=== PATIENT | female | born 2000 | race Caucasian/White ===

== ENCOUNTER 2019-11-22 07:45 | Outpatient (CLI) | payer BC, SELFPAY ==
--- NOTE | ~2019-11-22 | US_ITS ---
EXAMINATION: US abdomen complete EXAM DATE: 11/22/2019 09:09 INDICATION: Splenomegaly. TECHNIQUE: Multiple grayscale and Doppler images of the complete abdomen were obtained (by a technolo gist who performed the scan) and subsequently reviewed. Comparison is made to prior examination from 05/21/2014. FINDINGS: The abdominal aorta is normal in caliber. Visualized portion IVC is patent. The pancreatic head a nd body are normal in appearance. The pancreatic tail is not visualized. The liver has normal echogenicity and contour. There are no focal liver lesions identified. There is no evidence of intrahepatic biliary duct dilation. Portal venous flow was seen in the hepatopedal , normal direction and has normal Doppler waveform. Common bile duct measures 6 mm, which is normal. The gallbladder fossa is unremarkable. Right kidney: There is normal contour and echogenicity. It measures 10.7 x 4.2 x 4.9 centimeters. There are no focal renal lesions identified. There is no hydronephrosis. Left kidney: There is normal contour and echogenicity. It measures 10.3 x 4.0 x 4.9 centimeters. T here are no focal renal lesions identified. There is no hydronephrosis. Spleen measures 15.6 cm in greatest dimension, mildly enlarged. Spleen was not measured on prior stud y. IMPRESSION: 1. Mild splenomegaly. Reviewed, dictated and finalized at location B. S CYLINDER FLANGER IMPRESSION: 1. Mild splenomegaly.
== END 2019-11-22 07:46 | disposition home or self-care (01) ==
PROVIDERS: Visit Provider Internal Medicine Gastroenterology
DX: R16.1 Splenomegaly, not elsewhere classified (principal)
CPT/HCPCS: 76700